=== PATIENT | male | born 1980 | race Caucasian/White ===

== ENCOUNTER 2021-01-05 11:37 | Emergency (ER) | payer SELFPAY ==
[~2021-01-05] VITALS: Ht 172.7 cm; Wt 68.0 kg
[2021-01-05] MEDS ORDERED: ONDANSETRON HCL INJ 2MG/ML 2ML 2 MG/ML VIAL IV STA (11:57)
[2021-01-05] MEDS ORDERED: MORPHINE SULFATE INJ 4 MG/ML INJ 1ML IV ONE (12:00)
[2021-01-05] MEDS ORDERED: DEXAMETHASONE SOD PHOS 10 MG/1 ML VIAL IV ONE (12:00)
[2021-01-05] MEDS ORDERED: DEXAMETHASONE SOD PHOS INJ 4 MG/ML VIAL ONE (12:13)
[2021-01-05] MEDS ORDERED: MORPHINE SULFATE INJ 4 MG/ML INJ 1ML ONE (12:13)
[2021-01-05] MEDS ORDERED: DIPHENHYDRAMINE HCL INJ 50 MG/ML VIAL ONE (12:26)
[2021-01-05] MEDS ORDERED: CYCLOBENZAPRINE5 MG PO (13:37)
[2021-01-05] MEDS ORDERED: ULTRAM50 MG PO (13:37)
[2021-01-05 13:40] VITALS: BP 118/77
== END 2021-01-05 13:53 | disposition home or self-care (01) ==
LOC: FSED 11:58
DX: M54.40 Lumbago with sciatica, unspecified side (principal)
CPT/HCPCS: 72100; 99283; J1100 ×2; J2270; J2405; 96374; 96375; J1200

== ENCOUNTER 2022-05-01 22:44 | Emergency (ER) | payer OTHER ==
[~2022-05-01] VITALS: Ht 172.7 cm; Wt 65.8 kg
[~2022-05-01 22:44] MED LIST: CYCLOBENZAPRINE5 MG PO; ULTRAM50 MG PO
[2022-05-01 23:42] LABS: BASOPHILS % 0.2 % (0.0-1.0); EOSINOPHILS # (AUTO) 0.1 (0.0-0.4); EOSINOPHILS % 0.7 % (0.0-6.0); HEMATOCRIT 41.6 % (38.2-49.6); HEMOGLOBIN 14.4 g/dL (14.0-18.0); LYMPHOCYTES # (AUTO) 1.4 (1.0-3.2); LYMPHOCYTES % 15.4 % (18.0-39.1); MEAN CORPUSCULAR HEMOGLOBIN 32.4 pg (28-32); MEAN CORPUSCULAR HGB CONC 34.6 g/dL (31-35); MEAN CORPUSCULAR VOLUME 93.7 fL (81-99); MONOCYTES # (AUTO) 0.5 (0.2-0.8); MONOCYTES % 5.5 % (4.4-11.3); PLATELET COUNT 288 x10e3/uL (140-360); RED BLOOD COUNT 4.44 x10e6/uL (4.3-5.7)
[2022-05-02 00:01] LABS: ANION GAP 18.5 mmol/L (8-16); CALCIUM 9.6 mg/dL (8.4-10.2); CREATININE, SERUM 1.04 mg/dL (0.72-1.25); POTASSIUM 3.5 mmol/L (3.5-5.1)
[2022-05-02] MEDS ORDERED: NAPROSYN500 MG PO (01:44)
[2022-05-02] MEDS ORDERED: CYCLOBENZAPRINE5 MG PO (01:44)
[2022-05-02 01:57] VITALS: BP 138/82
[2022-05-02] MEDS ORDERED: IOPAMIDOL 370 MG/ML 100 ML INFUS..BTL INJ ONE (04:44)
== END 2022-05-02 01:55 | disposition home or self-care (01) ==
LOC: ER 22:52
DX: R07.89 Other chest pain (principal); S16.1XXA Strain of muscle, fascia and tendon at neck level, initial encounter; V29.9XXA Motorcycle rider (driver) (passenger) injured in unspecified traffic accident, initial encounter; Y92.488 Other paved roadways as the place of occurrence of the external cause
CPT/HCPCS: 36415; 70491; 71260; 72050; 80048; 85025; 99283; Q9967

== ENCOUNTER 2024-10-03 21:40 | Emergency (ER) | payer OTHER ==
[~2024-10-03] VITALS: Ht 172.7 cm; Wt 65.8 kg
[~2024-10-03 21:40] MED LIST changes: +NAPROSYN500 MG PO
[2024-10-03 22:08] LABS: BASOPHILS # (AUTO) 0.1 (0.0-0.1); BASOPHILS % 0.4 % (0.0-1.0); EOSINOPHILS # (AUTO) 0.5 (0.0-0.4); EOSINOPHILS % 2.8 % (0.0-6.0); HEMATOCRIT 44.2 % (38.2-49.6); HEMOGLOBIN 15.7 g/dL (14.0-18.0); LYMPHOCYTES # (AUTO) 5.3 (1.0-3.2); MEAN CORPUSCULAR HEMOGLOBIN 33.7 pg (28-32); MEAN CORPUSCULAR HGB CONC 35.5 g/dL (31-35); MEAN CORPUSCULAR VOLUME 94.8 fL (81-99); MONOCYTES # (AUTO) 0.9 (0.2-0.8); MONOCYTES % 5.5 % (4.4-11.3); NEUTROPHILS # (AUTO) 9.4 (2.1-6.9); NEUTROPHILS % 58.1 % (38.7-80.0); PLATELET COUNT 348 x10e3/uL (140-360); RED BLOOD COUNT 4.66 x10e6/uL (4.3-5.7); RED CELL DISTRIBUTION WIDTH 12.3 % (11.7-14.4); WHITE BLOOD COUNT 16.15 x10e3/uL (4.8-10.8)
[2024-10-03 22:15] VITALS: TEMP 98.9
[2024-10-03] MEDS: HYDROXYZINE HCL 25 MG TAB PO ONE (22:18)
[2024-10-03] MEDS: ACETAMINOPHEN 325 MG TAB PO ONE (22:19)
[2024-10-03] MEDS: SODIUM CHLORIDE 0.9% 1000ML 1,000 ML IV ONE (22:19)
[2024-10-03 22:23] LABS: ALBUMIN 4.8 g/dL (3.5-5.0); ALBUMIN/GLOBULIN RATIO 1.8 (0.8-2.0); ANION GAP 20.3 mmol/L (8-16); BILIRUBIN,TOTAL 0.8 mg/dL (0.2-1.2); CALCIUM 9.6 mg/dL (8.4-10.2); CREATININE, SERUM 1.3 mg/dL (0.72-1.25); TOTAL PROTEIN 7.5 g/dL (6.5-8.1)
[2024-10-03 22:25] LABS: POTASSIUM 3.3 mmol/L (3.5-5.1)
[2024-10-03 22:56] LABS: AMPHETAMINES SCREEN,URINE NEGATIVE (NEGATIVE); BENZODIAZEPINES SCREEN,URINE NEGATIVE (NEGATIVE); CANNABINOIDS SCREEN,URINE POSITIVE (NEGATIVE); COCAINE SCREEN,URINE NEGATIVE (NEGATIVE); METHADONE SCREEN, URINE NEGATIVE (NEGATIVE); OPIATES SCREEN,URINE NEGATIVE (NEGATIVE); PHENCYCLIDINE SCREEN,URINE NEGATIVE (NEGATIVE)
[2024-10-03 23:52] LABS: CORONAVIRUS COVID-19 AG NEGATIVE (NEGATIVE); INFLUENZA A AG NEGATIVE (NEGATIVE); INFLUENZA B AG NEGATIVE (NEGATIVE)
[2024-10-04 00:51] VITALS: PULSE 58; RESP 18; O2SAT 96
[2024-10-04 11:03] LABS: EOSINOPHILS % (MANUAL) 4 % (0-7); LYMPHOCYTES % (MANUAL) 34 % (19-48); MONOCYTES % (MANUAL) 4 % (3.4-9.0); NEUTROPHILS % (MANUAL) 56 % (40-74); PLATELET ESTIMATE ADEQUATE; PLATELET MORPHOLOGY COMMENT NORMAL; RBC MORPHOLOGY COMMENT NORMAL; REACTIVE LYMPHOCYTES 2
== END 2024-10-04 01:00 | disposition home or self-care (01) ==
LOC: ER 21:54
DX: R06.00 Dyspnea, unspecified (principal); F41.9 Anxiety disorder, unspecified; F12.10 Cannabis abuse, uncomplicated; Z11.52 Encounter for screening for COVID-19; R94.31 Abnormal electrocardiogram [ECG] [EKG]; F17.210 Nicotine dependence, cigarettes, uncomplicated
CPT/HCPCS: 36415; 71045; 80053; 80307; 80320; 84484; 85025; 85379; 87428; 99284; J3410; J7030; 93005